=== PATIENT | female | born 1990 | race Caucasian/White ===

== ENCOUNTER 2021-10-09 18:30 | Emergency (ER) | payer OTHER ==
[2021-10-09 20:21] LABS: HEMOGLOBIN 11.6 gm/dl (12.3-15.3); RED BLOOD COUNT 4.34 M/UL (4.00-5.10); WHITE BLOOD COUNT 6.7 K/UL (4.5-11.0)
[2021-10-09 20:43] LABS: BUN/CREATININE RATIO 15 (0-10)
[2021-10-09] MEDS ORDERED: OMEPRAZOLE40 MG PO (21:24)
[2021-10-09] MEDS ORDERED: CARAFATE1 GM PO (21:24)
== END 2021-10-09 21:35 | disposition home or self-care (01) ==
LOC: ER1 18:30
PROVIDERS: Family Medicine
DX: R10.10 Upper abdominal pain, unspecified (principal); F17.290 Nicotine dependence, other tobacco product, uncomplicated
CPT/HCPCS: 80053; 81001; 83690; 84703; 85025; 99284